=== PATIENT | female | born 1950 | race Two or more races ===

== ENCOUNTER 2016-06-10 00:27 | Inpatient (IN) | payer OTHER, MEDICAID ==
[~2016-06-10] VITALS: Ht 167.6 cm; Wt 103.9 kg
--- NOTE | 2016-06-10 00:32 | NUR ---
65 YO FEMALE BB SELF. PT IS ALERT X 3, C/O COUGH CONGESTION X 4 DAYS. PT IS AMBULATED TO ER BED, SKIN WARMN AND DRY, RR EVEN AND UNLABORED. AWAITING ORDERS FROM PROVIDER
[2016-06-10] MEDS ORDERED: IV D5W 250 ML IV ONE (02:45)
[2016-06-10] MEDS ORDERED: AZITHROMYCIN 500 MG VIAL ONE (02:45)
[2016-06-10] MEDS ORDERED: IV SET PRIMARY PUMP SET 1 EA INFUS.SET MC ONE ×2 (02:45→03:50)
[2016-06-10] MEDS ORDERED: IV NS 0.9% 1,000 ML IV PRN (02:51)
[2016-06-10] MEDS ORDERED: ONDANSETRON HCL/PF 4 MG/2 ML VIAL IVP PRN (03:00)
[2016-06-10] MEDS: AZITHROMYCIN 500 MG in IV D5W 250 ML IV SCH (03:00)
[2016-06-10] MEDS ORDERED: ALBUTEROL FS 2.5 MG/0.5 ML VIAL.NEB NEB PRN (03:00)
[2016-06-10] MEDS ORDERED: MORPHINE SULFATE INJ 2 MG/ML DISP.SYRIN IV PRN (03:00)
[2016-06-10] MEDS ORDERED: AZITHROMYCIN 500 MG in IV D5W 250 ML IV ONE (03:00)
[2016-06-10] MEDS ORDERED: ALBUTEROL FS 2.5 MG/3 ML VIAL.NEB NEB ONE (03:00)
[2016-06-10] MEDS ORDERED: MAGNESIUM HYDROXIDE 30 ML UDC PO PRN (03:00)
[2016-06-10] MEDS ORDERED: ZOLPIDEM TARTRATE 5 MG TABLET PO PRN (03:00)
[2016-06-10] MEDS ORDERED: Z GUARD REMEDY 2 OZ OINT TP PRN (03:00)
[2016-06-10] MEDS ORDERED: MAG HYDROX/AL HYDROX/SIMETH 30 ML UDC PO PRN (03:00)
[2016-06-10] MEDS ORDERED: IPRATROPIUM NEB FS 0.5 MG/2.5 ML AMPUL.NEB NEB PRN (03:00)
[2016-06-10 03:02] LABS: BASOPHILS % (AUTO) 0.4 % (0.0-2.0); EOSINOPHILS # (AUTO) 0.3 /CMM (0.0-0.7); EOSINOPHILS % (AUTO) 6.2 % (0.0-6.0); HEMATOCRIT 39 % (33-45); HEMOGLOBIN 12.7 g/dL (11.5-14.8); LYMPHOCYTES # (AUTO) 0.5 /CMM (0.8-4.8); LYMPHOCYTES % (AUTO) 12.2 % (20.0-44.0); MEAN CORPUSCULAR HEMOGLOBIN 27 PG (26.0-33.0); MEAN CORPUSCULAR HGB CONC 33 g/dl (31.0-36.0); MEAN CORPUSCULAR VOLUME 82 fL (82-100); MONOCYTES # (AUTO) 0.5 /CMM (0.1-1.30); MONOCYTES % (AUTO) 11.7 % (2.0-12.0); NEUTROPHILS # (AUTO) 3.1 /CMM (1.8-8.9); NEUTROPHILS % (AUTO) 69.5 % (43.0-81.0); PLATELET COUNT (AUTO) 201 /CMM (150-450); RDW COEFFICIENT OF VARIATION 16.9 (11.5-15.0); RED BLOOD CELL COUNT(AUTO) 4.73 MIL/uL (4.0-5.2); WHITE BLOOD COUNT (AUTO) 4.4 K/uL (4.3-11.0)
--- NOTE | 2016-06-10 03:02 | NUR ---
EMT AT BED SIDE FOR EKG
--- NOTE | 2016-06-10 03:02 | NUR ---
MEDICTAED PT ORDERED
--- NOTE | 2016-06-10 03:03 | NUR ---
REPORT GIVEN TO FREEMAN TELLEZ FOR [facility]IN[facility]
[2016-06-10] MEDS ORDERED: BACL10TA PO (03:04)
[2016-06-10] MEDS ORDERED: FOLI1TAB16 PO (03:04)
[2016-06-10] MEDS ORDERED: ASPI81TA2 PO (03:04)
[2016-06-10] MEDS ORDERED: OLOP5DRO EACHEYE (03:04)
[2016-06-10] MEDS ORDERED: [UNRECOGNIZED DRUG - CODE] EACHEYE (03:04)
[2016-06-10] MEDS ORDERED: LEVO137T24 PO (03:04)
[2016-06-10] MEDS ORDERED: ESCI5TAB PO (03:04)
[2016-06-10] MEDS ORDERED: ALBU2.5V38 NEB (03:04)
[2016-06-10] MEDS ORDERED: HYDR-3976 PO (03:04)
[2016-06-10] MEDS ORDERED: ATOR10TA PO (03:04)
[2016-06-10] MEDS ORDERED: HYDR12.5 PO (03:04)
[2016-06-10] MEDS ORDERED: POLY17PO4 PO (03:04)
[2016-06-10] MEDS ORDERED: OXYB5TAB PO (03:04)
[2016-06-10] MEDS ORDERED: METO25TA6 PO (03:04)
[2016-06-10] MEDS ORDERED: DOCU-25 PO (03:04)
[2016-06-10] MEDS ORDERED: BENA20TA2 PO (03:04)
[2016-06-10] MEDS ORDERED: BUDE10.2 INH (03:07)
[2016-06-10] MEDS ORDERED: OXYC-128 PO (03:07)
[2016-06-10] MEDS ORDERED: CHOL200026 PO (03:07)
[2016-06-10] MEDS ORDERED: PYRI100T2 PO (03:07)
[2016-06-10 03:14] LABS: CALCIUM, SERUM 8.6 mg/dL (8.5-10.1); CREATININE 0.8 mg/dL (0.6-1.3); POTASSIUM 3.7 mmol/L (3.5-5.1)
[2016-06-10 03:21] LABS: LACTIC ACID 0.9 mmol/L (0.4-2.0)
[2016-06-10 03:26] LABS: ALBUMIN 3.2 g/dL (3.4-5.0); BILIRUBIN,DIRECT 0.1 mg/dL (0.0-0.2); BILIRUBIN,TOTAL 0.4 mg/dL (0.2-1.0); TOTAL PROTEIN, SERUM 6.7 g/dL (6.4-8.2)
[2016-06-10 03:30] VITALS: BP 123/73
--- NOTE | 2016-06-10 03:30 | NUR ---
QUALITY ASSURANCE MONITOR NOTE PATIENT RECEIVED VIA [facility] FROM ER. DAUGHTER AT BEDSIDE. ALL BELONGINGS CHECKED AND ACCOUNTED FOR. NO RESPIRATORY DISTRESS OR PAIN NOTED. IV SITE INTACT, WITH FLUIDS RUNNING ORDERED. RECEIVING 2L VIA NASAL CANNULA, SATURATING AT 96%. MEDICATION RECONCILIATION COMPLETE. SKIN CHECK DONE. NO BREAKDOWN OR BRUISING NOTED. ORIENTED PATIENT AND DAUGHTER TO ROOM AND TO UNIT. BED LOCKED AND IN LOWEST POSITION. HOB ELEVATED. SIDE RAILS UP, CALL LIGHT WITHIN REACH. WILL CONTINUE TO MONITOR.
[2016-06-10] MEDS ORDERED: IV D5W 50 ML IV ONE (03:38)
[2016-06-10] MEDS ORDERED: ACETAMINOPHEN 325 MG TABLET ONE (03:38)
[2016-06-10] MEDS ORDERED: SECONDARY IV SET 1 EA INFUS.SET MC ONE (03:38)
[2016-06-10] MEDS ORDERED: CEFTRIAXONE 1 G VIAL ONE (03:38)
[2016-06-10] MEDS ORDERED: methylPREDNISolone SOD SUCC 125 MG/2ML VIAL ONE (03:40)
[2016-06-10] MEDS ORDERED: IV NS 0.9% 1,000 ML ONE (03:49)
[2016-06-10] MEDS: ACETAMINOPHEN 325 MG TABLET PO PRN ×2 (03:53→11:35)
[2016-06-10] MEDS: methylPREDNISolone SOD SUCC 125 MG/2ML VIAL IV SCH ×2 (03:53→08:30)
[2016-06-10] MEDS: CEFTRIAXONE 1 G in IV D5W 50 ML IV SCH (03:55)
[2016-06-10] MEDS ORDERED: ROCURONIUM BROMIDE 50 MG/5 ML ONE (06:12)
[2016-06-10] MEDS ORDERED: MIDAZOLAM HCL 2 MG/2ML VIAL ONE (06:12)
[2016-06-10] MEDS ORDERED: FENTANYL PF 100MCG/2ML AMPUL ONE ×2 (06:12)
[2016-06-10 06:38] VITALS: BP 122/73
[2016-06-10 08:00] VITALS: BP 116/66
--- NOTE | 2016-06-10 08:00 | NUR ---
tele occupational hygienist: initial assessment received pt in bed awake, a/ox4; ambulatory. continue on ivf, infusing well. no c/o sob, chest pain, or any discomfort. no wheezing noted upon auscult. instructed to call for assistance. will continue to monitor.
[2016-06-10] MEDS: PANTOPRAZOLE 40 MG TABLET.DR PO SCH (08:13)
--- NOTE | 2016-06-10 11:00 | NUR ---
m/s machine assembler supervisor: notes pt wants to be disconnected from her ivf. instructed to call for assistance. will continue to monitor.
--- NOTE | 2016-06-10 11:50 | NUR ---
m/s fiber analyst: md visit seen and examined by dr. schwartz at this time. family at bedside. will continue to monitor.
--- NOTE | 2016-06-10 14:45 | NUR ---
M/S METAL HANGING SUPERVISOR: NOTES C/O 12/17 HEADACHE, MEDICATED WITH NORCO 1 TAB PO ORDERED. WILL CONTINUE TO MONITOR.
[2016-06-10] MEDS: HYDROCODONE/APAP 5/325MG 1 EACH TABLET PO PRN (14:46)
[2016-06-10] MEDS ORDERED: HYDROCODONE/APAP 7.5/325MG 1 EACH TABLET PO PRN (15:00)
[2016-06-10] MEDS ORDERED: LEVOTHYROXINE SODIUM 137 MCG TABLET PO SCH (15:00)
[2016-06-10] MEDS ORDERED: BACLOFEN (10 MG) 10 MG TABLET PO PRN (15:00)
[2016-06-10] MEDS: POLYETHYLENE GLYCOL 3350 17 GM POWD.PACK PO SCH (15:15)
[2016-06-10] MEDS: FOLIC ACID 1 MG TABLET PO SCH (15:18)
[2016-06-10] MEDS: OXYBUTYNIN CHLORIDE ER 5 MG TAB PO SCH (15:18)
[2016-06-10] MEDS ORDERED: LEVOTHYROXINE SODIUM 75 MCG TABLET PO SCH (15:18)
[2016-06-10] MEDS: ASPIRIN 81 MG TAB.CHEW PO SCH (15:18)
[2016-06-10] MEDS: BENAZEPRIL HCL 20 MG TABLET PO SCH (15:19)
[2016-06-10] MEDS: METOPROLOL TARTRATE 25 MG TABLET PO SCH ×2 (15:20→16:00)
[2016-06-10] MEDS: ATORVASTATIN 10 MG TABLET PO SCH (15:20)
[2016-06-10] MEDS: OLOPATADINE HCL 0.1% OPHTH BOTTLE EACHEYE SCH ×2 (15:39→16:00)
[2016-06-10 16:00] VITALS: BP 137/76
--- NOTE | 2016-06-10 17:00 | NUR ---
m/s campaign coordinator: notes up and about in unit. no c/o sob or any discomfort. instructed to call for assistance. will continue to monitor.
--- NOTE | 2016-06-10 18:18 | NUR ---
m/s reproductive endocrinologist: notes resting comfortable in bed with son at bedside. needs attended. instructed to call for assistance. will continue to monitor.
--- NOTE | 2016-06-10 19:30 | NUR ---
MS VETERANS SERVICE OFFICER INITIAL NOTES GOT REPORT FROM AM NURSE QI. CHECKED PT SHE'S AWAKE SITTING ON HER BED WHILE WATCHING TV , NO SOB NOTED AT THIS TIME. WITH 02 AT 2 LITERS VIA NC. BREATHING EVEN AND UNLABORED. IVF HOLD AT THIS TIME PER PT REQUESTED. KEPT HER COMFORTABLE AT ALL TIMES. PLACE CALL LIGHT AT REACH, WILL CONTINUE TO MONITOR.
[2016-06-10 20:00] VITALS: BP 137/73
[2016-06-10] MEDS: IPRATROPIUM NEB FS 0.5 MG/2.5 ML AMPUL.NEB NEB SCH (20:28)
[2016-06-10] MEDS: ALBUTEROL FS 2.5 MG/0.5 ML VIAL.NEB NEB SCH (20:28)
[2016-06-10] MEDS: DOCUSATE SODIUM 100 MG CAPSULE PO PRN (21:48)
--- NOTE | 2016-06-10 21:50 | NUR ---
MS NIGEL NOTES COLASE GIVEN PRN TO EASE THE CONSTIPATION OF THE PT. WILL CONTINUE TO MONITOR.
[2016-06-11] MEDS: ALBUTEROL FS 2.5 MG/0.5 ML VIAL.NEB NEB SCH ×4 (00:48→20:23)
[2016-06-11] MEDS: IPRATROPIUM NEB FS 0.5 MG/2.5 ML AMPUL.NEB NEB SCH ×4 (00:48→20:23)
[2016-06-11] MEDS: CEFTRIAXONE 1 G in IV D5W 50 ML IV SCH (03:29)
[2016-06-11] MEDS ORDERED: SECONDARY IV SET 1 EA INFUS.SET MC ONE (04:03)
[2016-06-11] MEDS: AZITHROMYCIN 500 MG in IV D5W 250 ML IV SCH (04:07)
[2016-06-11 06:34] LABS: BASOPHILS % (AUTO) 0.2 % (0.0-2.0); EOSINOPHILS % (AUTO) 0.3 % (0.0-6.0); HEMATOCRIT 39 % (33-45); HEMOGLOBIN 12.9 g/dL (11.5-14.8); LYMPHOCYTES # (AUTO) 0.9 /CMM (0.8-4.8); LYMPHOCYTES % (AUTO) 16.6 % (20.0-44.0); MEAN CORPUSCULAR HEMOGLOBIN 27 PG (26.0-33.0); MEAN CORPUSCULAR HGB CONC 33 g/dl (31.0-36.0); MEAN CORPUSCULAR VOLUME 82 fL (82-100); MONOCYTES # (AUTO) 0.6 /CMM (0.1-1.30); MONOCYTES % (AUTO) 11.4 % (2.0-12.0); NEUTROPHILS % (AUTO) 71.5 % (43.0-81.0); PLATELET COUNT (AUTO) 219 /CMM (150-450); RDW COEFFICIENT OF VARIATION 16.9 (11.5-15.0); RED BLOOD CELL COUNT(AUTO) 4.69 MIL/uL (4.0-5.2); WHITE BLOOD COUNT (AUTO) 5.6 K/uL (4.3-11.0)
--- NOTE | 2016-06-11 07:00 | NUR ---
MS CUSTOM TAILOR APPRENTICE CLOSING NOTES PT AWAKE AND ALERT WATCHING TV , DUE MEDS GIVEN . STABLE YNES THE NIGHT AND SLEPT WELL. NO SIGNS OF SOB NOTED. DENIES ANY DISCOMFORT. KEPT HER COMFORTABLE AT ALL TIMES. PLACE CALL LIGHT AT REACH. WILL ENDORSE TO AM NURSE BUSBY FOR CONTINUITY OF CARE. PLACE CALL LIGHT AT REACH.
[2016-06-11 07:05] LABS: CALCIUM, SERUM 8.5 mg/dL (8.5-10.1); CREATININE 0.7 mg/dL (0.6-1.3); MAGNESIUM 1.9 mg/dL (1.8-2.4); PHOSPHORUS 3.1 mg/dL (2.5-4.9); POTASSIUM 3.2 mmol/L (3.5-5.1)
[2016-06-11 08:00] VITALS: BP 118/67
[2016-06-11] MEDS: ATORVASTATIN 10 MG TABLET PO SCH (08:36)
[2016-06-11] MEDS: LEVOTHYROXINE SODIUM 75 MCG TABLET PO SCH (08:36)
[2016-06-11] MEDS: BENAZEPRIL HCL 20 MG TABLET PO SCH (08:36)
[2016-06-11] MEDS: ASPIRIN 81 MG TAB.CHEW PO SCH (08:36)
[2016-06-11] MEDS: METOPROLOL TARTRATE 25 MG TABLET PO SCH ×2 (08:36→16:45)
[2016-06-11] MEDS: PANTOPRAZOLE 40 MG TABLET.DR PO SCH (08:36)
[2016-06-11] MEDS: OXYBUTYNIN CHLORIDE ER 5 MG TAB PO SCH (08:36)
[2016-06-11] MEDS: OLOPATADINE HCL 0.1% OPHTH BOTTLE EACHEYE SCH ×2 (08:37→16:45)
[2016-06-11] MEDS: FOLIC ACID 1 MG TABLET PO SCH (08:37)
[2016-06-11] MEDS: POLYETHYLENE GLYCOL 3350 17 GM POWD.PACK PO SCH (08:37)
[2016-06-11] MEDS: HYDROCHLOROTHIAZIDE 25 MG TABLET PO SCH (08:37)
[2016-06-11] MEDS: HYDROCODONE/APAP 5/325MG 1 EACH TABLET PO PRN (09:09)
--- NOTE | 2016-06-11 09:09 | NUR ---
M/S JEWEL STRINGER: NOTES C/O 10/17 HEADACHE, MEDICATED WITH NORCO 1 TAB PO ORDERED. INSTRUCTED TO CALL FOR ASSISTANCE. WILL CONTINUE TO MONITOR.
[2016-06-11] MEDS: methylPREDNISolone SOD SUCC 125 MG/2ML VIAL IV SCH (09:24)
--- NOTE | 2016-06-11 10:09 | NUR ---
M/S BELT TENDER: NOTES PT SOUNDS ASLEEP WITH NO S/S OF RESP. DISTRESS NOTED. CALL LIGHT WITHIN REACH. WILL MONITOR.
--- NOTE | 2016-06-11 11:58 | NUR ---
m/s coating mixer: md visit seen and examined by dr. schwartz at this time.
[2016-06-11] MEDS: POTASSIUM CHLORIDE 20 MEQ TAB.PRT.SR PO SCH ×2 (13:34→14:36)
[2016-06-11 16:00] VITALS: BP 107/65
[2016-06-11] MEDS: LACTOBACILLUS RHAMNOSUS GG 1 EACH CAP.SPRINK PO SCH (16:45)
--- NOTE | 2016-06-11 18:17 | NUR ---
m/s offset platemaker: notes in bed resting comfortable. no wheezing noted. no c/o sob. instructed to call for assistance. will continue to monitor.
[2016-06-11 20:00] VITALS: BP 124/70
--- NOTE | 2016-06-11 20:00 | NUR ---
RECEIVED PATIENT IN BED, ALERT AND ORIENTED X4, CALM, COUGHING NOTED. ON ROOM AIR, 02 SAT 98%, ABLE TO VERBALIZE NEEDS, DENIES ANY PAIN AT THIS TIME, CONTINENT OF BOWEL AND BLADDER, NEEDS ATTENDED, CALL LIGHT WITHIN REACH.
[2016-06-11] MEDS: DOCUSATE SODIUM 100 MG CAPSULE PO PRN (22:08)
[2016-06-12] MEDS: ALBUTEROL FS 2.5 MG/0.5 ML VIAL.NEB NEB SCH ×3 (01:09→13:45)
[2016-06-12] MEDS: IPRATROPIUM NEB FS 0.5 MG/2.5 ML AMPUL.NEB NEB SCH ×2 (01:09→13:45)
--- NOTE | 2016-06-12 02:07 | NUR ---
GIVEN OXYCODONE IR 10 MG PO FOR PAIN OF 8/10 TO LEFT KNEE, ALSO ON METAL SHEET ROLLER OPERATOR PUMP, 02 SAT AT 2LPM VIA NC IS 99%M WILL CONTINUE TO MONITOR. Addendum: 06/12/16 at 0310 by FLACA FELICIANO RN DISREGARD ABOVE CHARTING, NOT FOR PATIENT
[2016-06-12] MEDS: CEFTRIAXONE 1 G in IV D5W 50 ML IV SCH (02:16)
[2016-06-12] MEDS: AZITHROMYCIN 500 MG in IV D5W 250 ML IV SCH (03:01)
[2016-06-12] MEDS: HYDROCODONE/APAP 5/325MG 1 EACH TABLET PO PRN (04:06)
--- NOTE | 2016-06-12 06:30 | NUR ---
PATIENT IN BED, NO RESPIRATORY DISTRESS, COUGH NOTED, COLLECTED SPUTUM SAMPLE, RIGHT HAND SALINE LOCK IS PATENT, ALL IV ABX GIVEN, NO ASE NOTED. ABLE TO AMBULATE TO THE TOILET, COMPLIANT WITH MEDICATION, NO ADVERSE CHANGE OF CONDITION DURING SHIFT. NEEDS ATTENDED, CALL LIGHT WITHIN REACH.
[2016-06-12 07:13] LABS: CALCIUM, SERUM 8.3 mg/dL (8.5-10.1); CREATININE 0.7 mg/dL (0.6-1.3); POTASSIUM 4.3 mmol/L (3.5-5.1)
--- NOTE | 2016-06-12 07:35 | NUR ---
MS RN OPENING NOTES RECEIVED PT FROM NIGHTSHIFT NURSE AWAKE AND LYING IN BED IN STABLE CONDITION. A/OX4. NO PAIN OR SIGNS OF DISTRESS NOTED. ON RA SATING AT 98%. NO SOB NOTED. BREATHING IS EVEN AND UNLABORED. IV TO RIGHT HAND 20G PATENT AND INTACT. NO REDNESS OR INFILTRATION. BED IN LOW/LOCKED POSITION, SIDE RAILS UP X2, CALL LIGHT WITHIN PT REACH. WILL CONTINUE TO MONITOR
[2016-06-12 08:55] VITALS: BP 124/68
[2016-06-12] MEDS: OLOPATADINE HCL 0.1% OPHTH BOTTLE EACHEYE SCH (09:09)
[2016-06-12] MEDS: POLYETHYLENE GLYCOL 3350 17 GM POWD.PACK PO SCH (09:11)
[2016-06-12] MEDS: methylPREDNISolone SOD SUCC 125 MG/2ML VIAL IV SCH (09:11)
[2016-06-12] MEDS: FOLIC ACID 1 MG TABLET PO SCH (09:12)
[2016-06-12] MEDS: ASPIRIN 81 MG TAB.CHEW PO SCH (09:12)
[2016-06-12] MEDS: HYDROCHLOROTHIAZIDE 25 MG TABLET PO SCH (09:13)
[2016-06-12] MEDS: LACTOBACILLUS RHAMNOSUS GG 1 EACH CAP.SPRINK PO SCH (09:13)
[2016-06-12] MEDS: BENAZEPRIL HCL 20 MG TABLET PO SCH (09:13)
[2016-06-12] MEDS: METOPROLOL TARTRATE 25 MG TABLET PO SCH (09:14)
[2016-06-12] MEDS: ATORVASTATIN 10 MG TABLET PO SCH (09:14)
[2016-06-12] MEDS: LEVOTHYROXINE SODIUM 75 MCG TABLET PO SCH (09:14)
[2016-06-12] MEDS: OXYBUTYNIN CHLORIDE ER 5 MG TAB PO SCH (09:14)
[2016-06-12] MEDS: PANTOPRAZOLE 40 MG TABLET.DR PO SCH (09:15)
[2016-06-12 10:00] VITALS: BP 122/68
[2016-06-12] MEDS ORDERED: predniSONE 10 MG TABLET PO SCH (10:30)
--- NOTE | 2016-06-12 14:35 | NUR ---
MS GEOFF DC NOTE PT WAS ACCOMPANIED OFF THE UNIT BY MYSELF, HER GRANDDAUGHTER, AND DAUGHTER. NO SOB OR SIGNS OF DISTRESS NOTED. PT. LEFT IN STABLE CONDITION AND SAFELY INTO PRIVATE VEHICLE. ALL ORDERS AND PT. NEEDS WERE CARRIED OUT SUCCESSFULLY.
[2016-06-13] MEDS ORDERED: AZITHROMYCIN 250 MG TABLET PO SCH (03:00)
== END 2016-06-12 14:50 | disposition home or self-care (01) | DRG 192 ==
LOC: ER 00:27 → TELE 02:55 → MED 09:12
PROVIDERS: ADMIT Family Medicine; ATTEND Internal Medicine
DX: J44.0 Chronic obstructive pulmonary disease with (acute) lower respiratory infection (principal); J44.1 Chronic obstructive pulmonary disease with (acute) exacerbation; G47.30 Sleep apnea, unspecified; I10 Essential (primary) hypertension; G89.29 Other chronic pain; J20.9 Acute bronchitis, unspecified; E03.9 Hypothyroidism, unspecified; E78.5 Hyperlipidemia, unspecified; G47.33 Obstructive sleep apnea (adult) (pediatric); I25.10 Atherosclerotic heart disease of native coronary artery without angina pectoris; Z86.718 Personal history of other venous thrombosis and embolism; Z86.711 Personal history of pulmonary embolism; M54.5 Low back pain; E11.9 Type 2 diabetes mellitus without complications; F32.9 Major depressive disorder, single episode, unspecified; Z87.891 Personal history of nicotine dependence; Z96.652 Presence of left artificial knee joint; J32.9 Chronic sinusitis, unspecified; E66.01 Morbid (severe) obesity due to excess calories; Z87.01 Personal history of pneumonia (recurrent); Z68.37 Body mass index [BMI] 37.0-37.9, adult
CPT/HCPCS: 36415; 70220-TC; 71010-TC; 80048-TC; 80076-TC; 83605-TC; 83735-TC; 83880; 84100-TC; 85025-TC; 87040-TC; 87070-TC; 87081-TC; 94799-TC; A4606; A6253; J0456; J0696; J2250; J2930; J3010; J7030; J7060; Z7610

== ENCOUNTER 2017-03-31 09:23 | Emergency (ER) | payer OTHER, MEDICAID ==
[~2017-03-31] VITALS: Ht 162.6 cm; Wt 99.8 kg
[~2017-03-31 09:23] MED LIST: ALBU2.5V38 NEB; ASPI-1169 PO; ATOR10TA PO; BACL10TA PO; BENA20TA2 PO; BUDE10.2 INH; CHOL200026 PO; CROM10DR2 EACHEYE; DOCU-141 PO; ESCI5TAB PO; FOLI1TAB16 PO; HYDR-3976 PO; HYDR12.5 PO; LEVO137T24 PO; METO25TA6 PO; OLOP5DRO EACHEYE; OXYB5TAB PO; OXYC-128 PO; POLY17PO4 PO; PYRI100T2 PO
[2017-03-31 09:52] VITALS: BP 150/91
[2017-03-31] MEDS ORDERED: ACETAMINOPHEN ES 500 MG TABLET ONE (10:29)
[2017-03-31] MEDS ORDERED: ACETAMINOPHEN ES 500 MG TABLET PO ONE (10:30)
== END 2017-03-31 10:56 | disposition home or self-care (01) ==
LOC: ER 09:25
DX: B02.9 Zoster without complications (principal); I11.0 Hypertensive heart disease with heart failure; I50.9 Heart failure, unspecified; E03.9 Hypothyroidism, unspecified; G89.29 Other chronic pain; Z79.82 Long term (current) use of aspirin; Z86.718 Personal history of other venous thrombosis and embolism
CPT/HCPCS: 99283; A4606; Z7610

== ENCOUNTER 2021-06-22 14:48 | Emergency (ER) | payer OTHER ==
[~2021-06-22] VITALS: Ht 162.6 cm; Wt 90.3 kg
[~2021-06-22 14:48] MED LIST changes: -BENA20TA2 PO; +BENA20TA9 PO; +OXYB-58 PO; -OXYB5TAB PO; +PYRI100T10 PO; -PYRI100T2 PO
--- NOTE | 2021-06-22 14:48 | NUR ---
BIB [facility] FROM HOME,FELT DIZZY AFTER GETTING UP AND STARTED WALKING,ASSOCIATED WITH HEADACHE,BLOOD SUGAR IN THE FIELD WAS 132,DIRECTED TO ER 9,MONITORED,EKG PER PROTOCOL ORDERED.
--- NOTE | 2021-06-22 15:00 | NUR ---
MAGNETIC LOCATER AT BEDSIDE
[2021-06-22] MEDS ORDERED: APIX5TAB PO (15:21)
[2021-06-22] MEDS ORDERED: LOSA50TA39 PO (15:21)
[2021-06-22] MEDS ORDERED: NITR100C15 PO (15:21)
[2021-06-22] MEDS ORDERED: TIOT18CA3 INH (15:21)
[2021-06-22] MEDS ORDERED: MYRBETRIQ PO (15:21)
[2021-06-22] MEDS ORDERED: HYDR-3980 MT (15:21)
[2021-06-22] MEDS ORDERED: FLUT1BLS INH (15:21)
[2021-06-22 15:27] LABS: BASOPHILS % (AUTO) 0.9 % (0.0-2.0); EOSINOPHILS % (AUTO) 3.6 % (0.0-6.0); HEMATOCRIT 36 % (33-45); LYMPHOCYTES # (AUTO) 0.8 K/uL (0.8-4.8); LYMPHOCYTES % (AUTO) 15.6 % (20.0-44.0); MEAN CORPUSCULAR HGB CONC 34 g/dl (31.0-36.0); MEAN CORPUSCULAR VOLUME 83 fL (82-100); MONOCYTES # (AUTO) 0.6 K/uL (0.1-1.30); MONOCYTES % (AUTO) 11.1 % (2.0-12.0); NEUTROPHILS # (AUTO) 3.4 K/uL (1.8-8.9); NEUTROPHILS % (AUTO) 68.8 % (43.0-81.0); PLATELET COUNT (AUTO) 216 K/uL (150-450); RED BLOOD CELL COUNT(AUTO) 4.33 MIL/uL (4.0-5.2); WHITE BLOOD COUNT (AUTO) 4.9 K/uL (4.3-11.0)
[2021-06-22] MEDS ORDERED: PYRI100T10 PO (15:39)
[2021-06-22] MEDS ORDERED: ALBU8.5H8 IH (15:40)
[2021-06-22 15:47] LABS: ALBUMIN 2.8 g/dL (3.4-5.0); ASPARTATE AMINOTRANSFERASE 113 U/L (15-37); BILIRUBIN,TOTAL 0.5 mg/dL (0.2-1.0); CALCIUM, SERUM 8.2 mg/dL (8.5-10.1); CHLORIDE 105 mmol/L (98-107); CREATININE 0.5 mg/dL (0.6-1.3); GLUCOSE 91 mg/dL (74-106); UREA NITROGEN, BLOOD 14 mg/dL (7-18)
[2021-06-22 16:24] LABS: ALANINE AMINOTRANSFERASE 29 U/L (12-78); ALKALINE PHOSPHATASE 92 U/L (46-116); CARBON DIOXIDE 24 mmol/L (21-32); SODIUM SERUM 135 mmol/L (136-145); TOTAL PROTEIN, SERUM 7.1 g/dL (6.4-8.2)
--- NOTE | 2021-06-22 16:26 | NUR ---
TAKEN TO CT
--- NOTE | 2021-06-22 17:13 | NUR ---
IV removed. Catheter intact and site benign. Pressure and 4x4 applied to site. No bleeding noted.Patient discharged to home in stable condition. Written and verbal after care instructions given. Patient verbalizes understanding of instruction.
[2021-06-22 17:48] VITALS: BP 135/82
== END 2021-06-22 17:48 | disposition home or self-care (01) ==
LOC: ER 15:51
DX: R42 Dizziness and giddiness (principal); I11.0 Hypertensive heart disease with heart failure; I50.9 Heart failure, unspecified; J44.9 Chronic obstructive pulmonary disease, unspecified; E03.9 Hypothyroidism, unspecified; G89.29 Other chronic pain; Z96.652 Presence of left artificial knee joint; Z79.899 Other long term (current) drug therapy; Z79.82 Long term (current) use of aspirin
CPT/HCPCS: 36415; 70450; 71045; 80048; 80076; 84132; 84484; 85025; 93005; 99285; J7030